=== PATIENT | female | born 1980 | race African-American/Black ===

== ENCOUNTER 2022-05-15 16:05 | Emergency (ER) | payer MEDICAID ==
[~2022-05-15] VITALS: Ht 167.6 cm; Wt 92.5 kg
--- NOTE | 2022-05-15 16:20 | NUR ---
C/O STARTED FEELING SHORTNESS OF BREATH LAST NIGHT WITH CONGESTION
--- NOTE | 2022-05-15 16:40 | NUR ---
EMT AT BED SIDE FOR EKG
[2022-05-15] MEDS ORDERED: predniSONE 20 MG TABLET ONE (16:54)
[2022-05-15] MEDS ORDERED: IPRATROPIUM NEB FS 0.5 MG/2.5 ML AMPUL.NEB ONE ×2 (16:57→18:35)
[2022-05-15] MEDS ORDERED: ALBUTEROL FS 2.5 MG/3 ML VIAL.NEB ONE ×3 (16:57→19:47)
[2022-05-15] MEDS ORDERED: IPRATROPIUM NEB FS 0.5 MG/2.5 ML AMPUL.NEB NEB ONE (17:00)
[2022-05-15] MEDS ORDERED: predniSONE 20 MG TABLET PO ONE (17:00)
[2022-05-15] MEDS ORDERED: ALBUTEROL FS 2.5 MG/3 ML VIAL.NEB NEB ONE (17:00)
[2022-05-15] MEDS ORDERED: ALBUTEROL FS 2.5 MG/0.5 ML VIAL.NEB NEB ONE (17:30)
--- NOTE | 2022-05-15 17:30 | NUR ---
RT AT BED SIDE
[2022-05-15] MEDS ORDERED: ALBUTEROL FS 2.5 MG/3 ML VIAL.NEB CONTNEB ONE (19:30)
[2022-05-15] MEDS ORDERED: Magnesium 1GM/D5W 100ML PREMIX 200 ML IV ONE (19:30)
[2022-05-15] MEDS ORDERED: Magnesium 1GM/D5W 100ML PREMIX 100 ML IV ONE (19:36)
[2022-05-15] MEDS ORDERED: PRED50TA PO ×2 (20:53→22:24)
[2022-05-15] MEDS ORDERED: OSEL75CA18 PO ×2 (20:53→22:24)
--- NOTE | 2022-05-15 21:04 | NUR ---
Patient discharged to home in stable condition. Written and verbal after care instructions given. Patient verbalizes understanding of instruction. IV removed. Catheter intact and site benign. Pressure and 4x4 applied to site. No bleeding noted. PT ambulatory with a steady gait
[2022-05-16 00:11] VITALS: BP 125/75
== END 2022-05-15 21:04 | disposition home or self-care (01) ==
LOC: ER 16:07
DX: J45.901 Unspecified asthma with (acute) exacerbation (principal); B34.9 Viral infection, unspecified; J10.1 Influenza due to other identified influenza virus with other respiratory manifestations; J45.909 Unspecified asthma, uncomplicated; Z79.899 Other long term (current) drug therapy
CPT/HCPCS: 99285; 96365; 71045; 93005; 87804; 94799; 94640; 94644; J7512; J3475